=== PATIENT | male | born 1945 | race Caucasian/White ===

== ENCOUNTER → 2016-08-07 | Emergency (ER) | payer MEDICARE | END | disposition disaster alternative care site (69) | LOC: GAMB 23:16 | DX: R69 Illness, unspecified (principal) ==

== ENCOUNTER → 2016-10-07 | Outpatient (CLI) | payer MEDICARE | END | disposition disaster alternative care site (69) | LOC: GAMB 13:21 | DX: R06.9 Unspecified abnormalities of breathing (principal); R07.89 Other chest pain; Z79.82 Long term (current) use of aspirin | CPT/HCPCS: A0422; A0425; A0427 ==

== ENCOUNTER → 2016-10-08 | Emergency (ER) | payer MEDICARE | END | disposition disaster alternative care site (69) | LOC: GAMB 19:34 | DX: S09.93XA Unspecified injury of face, initial encounter (principal); F10.129 Alcohol abuse with intoxication, unspecified; R04.0 Epistaxis; Z79.82 Long term (current) use of aspirin; W01.0XXA Fall on same level from slipping, tripping and stumbling without subsequent striking against object, initial encounter ==

== ENCOUNTER → 2016-10-14 | Outpatient (CLI) | payer MEDICARE | END | disposition disaster alternative care site (69) | LOC: GAMB 08:38 | DX: R07.89 Other chest pain (principal); S72.92XD Unspecified fracture of left femur, subsequent encounter for closed fracture with routine healing; F10.129 Alcohol abuse with intoxication, unspecified; J44.9 Chronic obstructive pulmonary disease, unspecified; E78.5 Hyperlipidemia, unspecified; E11.9 Type 2 diabetes mellitus without complications; I10 Essential (primary) hypertension; R06.02 Shortness of breath; R05 Cough; Z96.642 Presence of left artificial hip joint; Z95.1 Presence of aortocoronary bypass graft; Z79.82 Long term (current) use of aspirin; Z79.899 Other long term (current) drug therapy; X58.XXXD Exposure to other specified factors, subsequent encounter | CPT/HCPCS: A0422; A0425; A0427 ==